=== PATIENT | male | born 1995 ===

== ENCOUNTER 2017-08-26 17:12 | Emergency (ER) | payer SELFPAY ==
--- NOTE | 2017-08-26 17:16 | ED PDOC ---
Addendum entered and electronically signed by Maritza lAmeida PA 08/29/17 15 :00: Addendum Addendum: 08/29/17 14:58 spoke with patient; he is aware of + chlamydia cultures; pt has been treated in er; PT was told to have partners tested and treated. pt denies any complaints. Original Note: Arrival/HPI - General Time Seen by Provider: 08/26/17 17:15 Historian: Patient - History of Present Illness Narrative History of Present Illness (Text): 08/26/17 17:15 21 y/o male, male, no significant pmh, nkda, c/o penile discharge with burning urinary sensation x 2 days s/p unprotected sex with a new partner about 2 weeks ago. Pt. has thick creamish white discharge which stained on his underwear, over 4 sexual partners with and without protection, no testicular pain, no fever or chills, no night sweat, no penile lesion or rash, no weight loss, no other medical or psychological complaints. Past Medical History - Provider Review Nursing Documentation Reviewed: Yes Family/Social History - Physician Review Nursing Documentation Reviewed: Yes Family/Social History: Unknown Family HX Allergies/Home Meds Allergies/Adverse Reactions: Allergies No Known Allergies Allergy (Verified 08/26/17 17:15) Review of Systems - Review of Systems Constitutional: absent: Fatigue, Fevers Eyes: absent: Vision Changes ENT: absent: Hearing Changes Respiratory: absent: SOB, Cough Cardiovascular: absent: Chest Pain Gastrointestinal: absent: Abdominal Pain, Nausea, Vomiting Genitourinary Male: Dysuria, Other (+penile discharge) Skin: absent: Rash, Pruritis Psychiatric: absent: Anxiety, Depression, Suicidal Ideation Physical Exam Vital Signs Reviewed: Yes Vital Signs Temp Pulse Resp BP Pulse Ox 08/26/17 17:18 98.4 F 90 16 119/63 98 Temperature: Afebrile Blood Pressure: Normal Pulse: Regular Respiratory Rate: Normal Appearance: Positive for: Well-Appearing, Non-Toxic, Comfortable Pain Distress: Mild Mental Status: Positive for: Alert and Oriented X 3 - Systems Exam Head: Present: Atraumatic, Normocephalic Pupils: Present: PERRL Extroacular Muscles: Present: EOMI Conjunctiva: Present: Normal Mouth: Present: Moist Mucous Membranes Neck: Present: Normal Range of Motion Respiratory/Chest: Present: Clear to Auscultation, Good Air Exchange. No: Respiratory Distress, Accessory Muscle Use Cardiovascular: Present: Regular Rate and Rhythm, Normal S1, S2. No: Murmurs Abdomen: Present: Normal Bowel Sounds. No: Tenderness, Distention, Peritoneal Signs Genitourinary Male: Present: Normal External Genitalia, Circumcised Penis. No: Lesions, Penile Discharge, Testicle Tenderness, Penile Swelling, Masses, Erythema, Hernias, Testicle Swelling Back: Present: Normal Inspection Upper Extremity: Present: Normal Inspection. No: Cyanosis, Edema Lower Extremity: Present: Normal Inspection. No: Edema Neurological: Present: GCS=15, CN II-XII Intact, Speech Normal, Motor Func Grossly Intact, Gait Normal, Memory Normal Skin: Present: Warm, Dry, Normal Color. No: Rashes Psychiatric: Present: Alert, Oriented x 3, Normal Insight, Normal Concentration Medical Decision Making ED Course and Treatment: 08/26/17 17:30 -Pt. refused HIV test, agreed on the UA/GC and Chlamydia testing, agreed to be prophylatically treated. -Rocephine 250mg IM, azithromycin 1gm po and pyridium 200mg po -I discussed with the patient that he should notified all his sexual partners for the STD testing and prophylatic treatment. 08/26/17 18:47 -UA show +UTI, will give macrobid as well. -Discharge home with macrobid, pyridium, stay hydrated, bed rest, use condomn in the future, notify all your sexual partners for the STD testing and prophylatic treatment. - Lab Interpretations Lab Results: Lab Results 08/26/17 18:36: Urine Color Straw, Urine Appearance Pending, Urine pH 7.0, Ur Specific [place] <= 1.005, Urine Protein Negative, Urine Glucose (UA) Negative, Urine Ketones Negative, Urine Blood Negative, Urine Nitrate Negative, Urine Bilirubin Negative, Urine Urobilinogen 0.2, Ur Leukocyte Esterase Moderate H, Urine RBC Pending, Urine WBC Pending - Medication Orders Current Medication Orders: Discontinued Medications Azithromycin (Zithromax) 1,000 mg PO STAT STA PRN Reason: Protocol Stop: 08/26/17 17:28 Last Admin: 08/26/17 17:52 Dose: 1,000 mg Ceftriaxone Sodium (Rocephin) 250 mg IM STAT STA PRN Reason: Protocol Stop: 08/26/17 17:28 Last Admin: 08/26/17 17:52 Dose: 250 mg IM Administration Charges Document 08/26/17 17:52 LA (Rec: 08/26/17 17:52 LA [id number]) Injection Site MAR Injection Site Left Gluteus Jaime Charges for Administration # of IM Administrations 1 Phenazopyridine HCl (Pyridium) 200 mg PO STAT STA Stop: 08/26/17 17:30 Last Admin: 08/26/17 17:52 Dose: 200 mg - PA / 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 Disposition/Present on Arrival - Present on Arrival Any Indicators Present on Arrival: No History of DVT/PE: No History of Uncontrolled Diabetes: No Urinary Catheter: No History of Decub. Ulcer: No - Disposition Have Diagnosis and Disposition been Completed?: Yes Diagnosis: Penile discharge, Concern about STD in male without diagnosis, UTI (urinary tract infection) Disposition: HOME/ ROUTINE Disposition Time: 17:34 Patient Plan: Discharge Patient Problems: Current Active Problems Problem Status Onset Concern about STD in male without diagnosis Acute Penile discharge Acute Condition: IMPROVED Additional Instructions: -Discharge home with macrobid, pyridium, stay hydrated, bed rest, use condomn in the future, notify all your sexual partners for the STD testing and prophylatic treatment. Prescriptions: Nitrofurantoin Macrocrystals [Macrobid] 100 mg PO BID #14 cap Phenazopyridine [Phenazopyridine HCl] 200 mg PO TID #5 tab Referrals: Blake Burdick, [Primary Care Provider] - Follow up with primary Randall Byers MD [Staff Provider] - Follow up with primary [facility] [place] - Follow up with primary Forms: WORK NOTE
[2017-08-26 17:19] VITALS: BP 119/63; PULSE 90; RESP 16; TEMP 98.4; O2SAT 98
[2017-08-26] MEDS ORDERED: cefTRIAXone (Rocephin) 250 mg Inj IM STA (17:27)
[2017-08-26 18:39] LABS: URINE BILIRUBIN NEGATIVE (NEGATIVE); URINE BLOOD NEGATIVE (NEGATIVE); URINE GLUCOSE (UA) NEGATIVE (NEGATIVE); URINE LEUKOCYTE ESTERASE MODERATE Leu/uL (NEGATIVE); URINE PROTEIN NEGATIVE mg/dL (<30 mg/dL); URINE UROBILINOGEN 0.2 E.U./dL (<1 E.U./dL)
[2017-08-26 18:43] LABS: URINE COLOR STRAW (YELLOW)
[2017-08-26 18:58] LABS: URINE APPEARANCE CLEAR (CLEAR); URINE BACTERIA TRACE (NEG); URINE EPITHELIAL CELLS 0 - 2 /hpf (0-5); URINE RBC NEGATIVE /hpf (0-2)
== END 2017-08-26 19:04 | disposition home or self-care (01) ==
LOC: ED 17:12 → MERGE 17:12 → ED 19:04
DX: R36.9 Urethral discharge, unspecified (principal); N39.0 Urinary tract infection, site not specified
CPT/HCPCS: 81001; 87086; 87491; 87591; 96372; 99284; J0696

== ENCOUNTER 2017-10-12 22:21 | Emergency (ER) | payer OTHER ==
[2017-10-12 22:45] VITALS: RESP 18
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
[2017-10-12] MEDS ORDERED: cefTRIAXone (Rocephin) 250 mg Inj IM STA (23:29)
[2017-10-13 00:52] LABS: URINE BILIRUBIN NEGATIVE (NEGATIVE); URINE BLOOD NEGATIVE (NEGATIVE); URINE GLUCOSE (UA) NEGATIVE (NEGATIVE); URINE LEUKOCYTE ESTERASE NEGATIVE Leu/uL (NEGATIVE); URINE PROTEIN NEGATIVE mg/dL (<30 mg/dL); URINE UROBILINOGEN 0.2 E.U./dL (<1 E.U./dL)
[2017-10-13 00:56] LABS: URINE APPEARANCE CLEAR (CLEAR); URINE COLOR YELLOW (YELLOW)
[2017-10-13 02:02] VITALS: BP 124/79; PULSE 88; TEMP 98.2; O2SAT 100
== END 2017-10-13 01:13 | disposition home or self-care (01) ==
LOC: ED 22:21
DX: Z20.2 Contact with and (suspected) exposure to infections with a predominantly sexual mode of transmission (principal)
CPT/HCPCS: 81003; 87491; 87591; 96372; 99282; J0696